=== PATIENT | male | born 1970 | race Caucasian/White ===

== ENCOUNTER 2018-12-04 10:19 | Emergency (ER) | payer OTHER, SELFPAY ==
[2018-12-04 10:20] VITALS: BP 183/98; PULSE 82; RESP 16; TEMP 36.7; O2SAT 95; BMI 34.7
--- NOTE | 2018-12-04 10:45 | ED.VISSUMM ---
- ER Visit Summary Date of Service: 12/04/18 Chief Complaint: Fall History of Present Illness: The patient is a 47 M who presents with a fall that occurred today at work. Patient states he was walking when he slipped and fell backwards. Patient hit his head. Patient denies any loss of consciousness. Patient was ambulatory at the scene. Patient denies any paresthesias or weakness. Patient denies any visual changes. Patient denies any nausea or vomiting. Physical Examination: Vital signs are stable. Patient is afebrile. Patient is in no acute distress. Oral mucosa is pink and moist. Neck is supple. Trachea is midline. There is no JVD noted. Heart was regular rate and rhythm. Lungs are clear and equal bilaterally. Cranial nerves II through XII are intact. Strength is 5/5 bilateral knee upper and lower extremities. There are no sensory deficits noted. Deep tendon reflexes are 2+/4 bilaterally. There is a small hematoma over the occiput just to the right of midline. There is no bony crepitance or step-off. There is no ecchymosis. Emergency Department Course and Treatment: Patient has no neurologic deficits and has a low suspicion of intracranial injury. I do not feel the patient needs a CT scan of the head at this time. Patient was instructed to use ice to the area. Patient was instructed to take Tylenol or ibuprofen as needed for pain. Patient was given head injury instructions. Patient was instructed to follow-up with his primary care physician or [facility] in 5 to 7 days. Patient understood and was agreeable with the plan. All questions were answered. Disposition: Discharge home Impression: Closed head injury This note was generated with [employer] dictation software. It may contain incorrect words, spelling, and punctuation that were not noted in review of the chart prior to signing ED Disposition - Plan for ED Patient: Disposition: Home or Assisted Living Diagnosis: Closed head injury Instructions: HEAD INJURY, No Wake-Up (Adult) Referrals: [facility] [GROUP OF PHYSICIANS] -
[2018-12-04 11:18] VITALS: BP 156/100; PULSE 76; RESP 16; O2SAT 95
--- NOTE | 2018-12-04 11:18 | ED.RN ---
DISCHARGE INSTRUCTIONS GIVEN TO AND REVIEWED WITH PATIENT, PATIENT DENIES QUESTIONS OR CONCERNS AND VOICES UNDERSTANDING OF DISCHARGE INSTRUCTIONS. PT AMBULATES OUT OF ROOM WITHOUT DIFFICULTY.
== END 2018-12-04 11:18 | disposition home or self-care (01) ==
LOC: ED 11:15
PROVIDERS: Emergency Provider Emergency Medicine; Family Provider Family Medicine; PCP Family Medicine
DX: S00.03XA Contusion of scalp, initial encounter (principal); W01.0XXA Fall on same level from slipping, tripping and stumbling without subsequent striking against object, initial encounter; Y93.01 Activity, walking, marching and hiking; Y92.9 Unspecified place or not applicable
CPT/HCPCS: 99285